=== PATIENT | female | born 1995 | race Caucasian/White ===

== ENCOUNTER 2022-07-11 18:36 | Emergency (ER) | payer OTHER, SELFPAY ==
--- NOTE | ~2022-07-11 | XR_ITS ---
EXAMINATION: XR SHOULDER, RIGHT CLINICAL INFORMATION: Decreased range of motion COMPARISON: None TECHNIQUE: AP external rotation, Grashey, scapular Y, and axillary views of the right shoulder. FINDINGS: The bones and soft tissues are normal. No fracture. Glenohumeral and acromioclavicular alignment is anatomic with normal joint space. No abnormal soft tissue calcifications. XR/XR shoulder RT min 2V IMPRESSION: Normal right shoulder.
--- NOTE | ~2022-07-11 | XR_ITS ---
EXAMINATION: XR CHEST CLINICAL INFORMATION: Shortness of breath COMPARISON: None TECHNIQUE: 2 views of the chest were obtained. FINDINGS: No significant abnormality is noted involving the heart, lungs, mediastinum, bony thorax or soft tissues. XR/XR chest 2V IMPRESSION: Unremarkable examination.
[2022-07-11 19:14] VITALS: BP 140/71; PULSE 64; RESP 16; TEMP 36.2; O2SAT 98; BMI 20.5
--- NOTE | 2022-07-11 19:14 | ED_ITS ---
HPI - Extremity Problem General Chief complaint: Extremity Injury, Upper Stated complaint: shoulder pain Time Seen by Provider: 07/11/22 21:48 Related Data Previous Rx's Medication Instructions Recorded ibuprofen 600 mg tablet 600 mg PO Q6H PRN fever or pain 07/11/22 #30 tabs Allergies Allergy/AdvReac Type Severity Reaction Status Date / Time No Known Allergies Allergy Unverified 05/03/20 16:31 [No Known Allergies*] [facility] Social History Social History Alcohol intake: current Alcohol intake frequency: holidays/special occasions only Smoked in Last 30 Days: Yes Use of substances other than those prescribed or required for medical reasons: Yes Substance Use Type: Marijuana Substance Use Frequency: Occasionally Advance Directives: No Patient : No Physical Exam Vital Signs: Vital Signs: Last Vital Signs Temp 98.9 F 07/11/22 22:00 Pulse 52 07/11/22 22:00 Resp 16 07/11/22 22:00 BP 97/58 L 07/11/22 22:00 Pulse Ox 100 07/11/22 22:00 O2 Del Method 07/11/22 22:00 BMI result Body Mass Index 20.5 Course Course Course Narrative: RME: Patient is a 27-year-old female presents emergency department for evaluation right shoulder pain. 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 Pain is felt diffusely throughout the right shoulder, and across the right anterior chest described as sharp in nature, reports associated shortness of breath/difficulty breathing. Denies any recent URI symptoms. PE: decreased AROM, neurovascularly intact distally. No respiratory distress. Lung sounds clear bilaterally. Plan: Ibuprofen for pain. XR of the right shoulder, low suspicion for pneumothorax however given additional report shortness of breath will obtain chest x-ray as well. Medications Administered Discontinued Medications Generic Name Dose Route Start Last Admin Trade Name Freq PRN Reason Stop Dose Admin Ibuprofen 600 mg 07/11/22 19:20 07/11/22 19:24 Ibuprofen 600 Mg Tablet PO 07/11/22 19:21 600 mg ONCE ONE Administration Discharge Plan Discharge Clinical Impression: Muscle strain of right upper back Patient Disposition: Home, Self-Care Instructions: Muscle Strain (ED) Additional Instructions: Take ibuprofen as prescribed For the PCP for any concerns Prescriptions: New ibuprofen 600 mg tablet 600 mg PO Q6H PRN (Reason: fever or pain) Qty: 30 0RF Interventions: ED Discharge Assessment Last Done: 07/11/22 22:29 Discharge Date/Time: 07/11/22 22:30
[2022-07-11] MEDS: Ibuprofen 600 MG TABLET PO (19:24)
[2022-07-11 21:36] VITALS: BP 110/72; PULSE 64; RESP 14; O2SAT 100
[2022-07-11 22:00] VITALS: BP 97/58; PULSE 52; RESP 16; TEMP 37.2; O2SAT 100
--- NOTE | 2022-07-11 22:21 | ED_ITS ---
HPI - Back Pain/Injury General Chief Complaint: Extremity Injury, Upper Stated Complaint: shoulder pain Time Seen by Provider: 07/11/22 21:48 Source: patient Mode of arrival: ambulatory Limitations: no limitations History of Present Illness HPI Narrative: Oblique patient was lifting bags at work noticed pain the upper back rhomboids area on the right side take a deep breath shortness of breath no other injuries Related Data Previous Rx's Medication Instructions Recorded ibuprofen 600 mg tablet 600 mg PO Q6H PRN fever or pain 07/11/22 #30 tabs Allergies Allergy/AdvReac Type Severity Reaction Status Date / Time No Known Allergies Allergy Unverified 05/03/20 16:31 [No Known Allergies*] Review of Systems Review of Systems: Yes all other systems are reviewed and are negative [facility] Social History Social History Alcohol intake: current Alcohol intake frequency: holidays/special occasions only Smoked in Last 30 Days: Yes Use of substances other than those prescribed or required for medical reasons: Yes Substance Use Type: Marijuana Substance Use Frequency: Occasionally Advance Directives: No Patient : No Physical Exam Vital Signs: Vital Signs: Last Vital Signs Temp 98.9 F 07/11/22 22:00 Pulse 52 07/11/22 22:00 Resp 16 07/11/22 22:00 BP 97/58 L 07/11/22 22:00 Pulse Ox 100 07/11/22 22:00 O2 Del Method 07/11/22 22:00 BMI result Body Mass Index 20.5 Appearance: Alert. Oriented X3. No acute distress. ENT: Pharynx normal. Oral Mucosa moist Neck: Normal inspection. Neck supple. CVS: Normal heart rate and rhythm. Pulses normal. Respiratory: No respiratory distress. Equal air entry bilateral, no wheezing/rales/rhonchi Abdomen: Soft and nontender. Bowel sounds are present, Skin: Skin warm and dry. Normal skin color. Normal skin turgor. Extremities: No lower extremity edema. No calf tenderness Neuro: Oriented X 3. No motor deficit. Back/Spine/Pelvis: Back/spine/pelvis image: 1. Tender left rhomboid area increases on pushing movement Medications Administered Discontinued Medications Generic Name Dose Route Start Last Admin Trade Name Freq PRN Reason Stop Dose Admin Ibuprofen 600 mg 07/11/22 19:20 07/11/22 19:24 Ibuprofen 600 Mg Tablet PO 07/11/22 19:21 600 mg ONCE ONE Administration MDM - Back Pain/Injury MDM Narrative Medical decision making narrative: Patient chest x-ray negative clinically muscle strain of the right rhomboids dis charge patient ibuprofen Discharge Plan Discharge Clinical Impression: Muscle strain of right upper back Patient Disposition: Home, Self-Care Instructions: Muscle Strain (ED) Additional Instructions: Take ibuprofen as prescribed For the PCP for any concerns Prescriptions: New ibuprofen 600 mg tablet 600 mg PO Q6H PRN (Reason: fever or pain) Qty: 30 0RF Interventions: ED Discharge Assessment Last Done: 07/11/22 22:29 Discharge Date/Time: 07/11/22 22:30
== END 2022-07-11 22:30 | disposition home or self-care (01) ==
PROVIDERS: Emergency Provider Internal Medicine
DX: S29.012A Strain of muscle and tendon of back wall of thorax, initial encounter (principal); X50.0XXA Overexertion from strenuous movement or load, initial encounter; Y93.89 Activity, other specified; Y92.511 Restaurant or cafe as the place of occurrence of the external cause; Y99.0 Civilian activity done for income or pay
CPT/HCPCS: 71046; 73030; 99283; 99284

== ENCOUNTER 2023-08-14 09:51 | Outpatient (AMB) | payer BC, SELFPAY ==
[2023-08-14 10:41] VITALS: BP 92/60; PULSE 69; O2SAT 98; BMI 22.7
--- NOTE | 2023-08-14 10:41 | A.OFFPC_ITS ---
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 Intake Note: Pt is here today as a New Patient/ PE: Last pap smear one year [facility] at [facility] Is last menstrual period known: Yes Last menstrual period: 07/28/23 Allergies No Known Allergies [No Known Allergies*] Allergy (Unverified 09/09/23 11:42) Medication List - Last Reconciled 08/14/23 by Opal Archer MD No Known Home Meds Tobacco use date assessed: 08/14/23 Dental Screening Dental Screen Date: 08/14/23 Did you have a dental visit in the last 12 months?: Yes Did you have a dental problem in the last 6 months where you did not have access to dental care?: Yes Was dental information given to patient?: Patient has dentist HPI DISABILITY REPRESENTATIVE/ Requesting PE HPI Details 28-year-old lady here today to establish care with new PCP and for her physical exam. States that she is up-to-date with her cervical cancer screening and pelvic exam, done at [facility] a year ago. Has been feeling well, but has at times having problems with keeping her tension at tasks, and occasional difficulty with concentration and has been feeling tired most of the time.. She has seasonal mood swings, able to control it with learned behavioral techniques. Does not want to start any medication at present time. However she does want to be evaluated for possible ADD. [facility] Medical History (Updated 08/14/23 @ 11:35 by Opal Archer MD) Anxiety and depression Difficulty concentrating Fatigue Surgical History (Updated 09/09/23 @ 11:48 by Opal Archer MD) No pertinent past surgical history Family History (Updated 08/14/23 @ 11:25 by Opal Archer MD) Father No problems noted. Mother Mental health disorder Depression Gestational diabetes Social History (Updated 08/14/23 @ 11:31 by Opal Archer MD) Housing: Apartment Alcohol intake: current Alcohol intake frequency: holidays/special occasions only Patient Tobacco Use Status: Former Tobacco user e-Cigarette/Vaping Use: Currently Using Substance Use Type: Marijuana service: No Current occupational status: employed Current occupation: [employer] Current occupational exposures/hazards: No Sexual orientation: Lesbian/Swayer/Homosexual Cognitive needs: No Hearing needs: No Vision needs: Yes Female Reproductive History Menstrual Age of Menarche: 14 Duration of menses: 3-5 days Date of last menstrual period: 07/28/23 control method: none History of STI: No Other: Previously was being seen at [facility], last Pap smear 2021, normal per patient Questionnaire PHQ-9 Over the last 2 weeks, how often have you been bothered by any of the following problems? 1. Little interest or pleasure in doing things: nearly every day 2. Feeling down, depressed, or hopeless: nearly every day 3. Trouble falling or staying asleep, or sleeping too much: nearly every day 4. Feeling tired or having little energy: nearly every day 5. Poor appetite or overeating: more than half the days 6. Feeling bad about yourself - or that you are a failure or have let yourself or your family down: not at all 7. Trouble concentrating on things, such as reading the newspaper or watching television: nearly every day 8. Moving or speaking so slowly that other people could have noticed. Or the opposite - being so fidgety or restless that you have been moving around a lot more than usual: several days 9. Thoughts that you would be better off or of hurting yourself in some way: several days Total score: 19 Depression Screening Interpretation: Positive Depression Screening Follow-up: Existing condition, Community Mental Health Worker F/U and Declines treatment Depression Screening Done: Yes 21665 - PHQ-9 Billing: Yes Source: Developed by Drs. Evgeny Hale, Lisseth Jesus, Abner Resendez and colleagues, with an educational braden from [employer]. Thrive Questionnaire Date Thrive assessed: 08/14/23 I am a: Patient What is your living situation today?: I have a steady place to live Within the past 12 months, did the food you bought not last and you didn't have the money to get more?: Never true Within the past 12 months, did you worry whether your food would run out before you got money to buy more?: Never true Do you have trouble paying for medicines?: No Do you have trouble getting transportation to medical appointments?: No Do you have trouble paying your heating and electricity bill?: No Do you have trouble taking care of your child, family member or friend?: No Do you have trouble with day-to-day activities such as bathing, preparing meals, shopping, managing finances, etc.?: No Are you currently unemployed and looking for a job?: No Are you interested in more education?: Yes AUDIT C Alcohol Use Questionnaire (AUDIT-C) 1. How often do you have a drink containing alcohol?: Monthly or less 2. How many drinks containing alcohol do you have on a typical day when you are drinking?: 1 or 2 3. How often do you have six or more drinks on one occasion?: Never Total Score: 1 TERESA-7 AMB Questionnaire TERESA-7 Date TERESA - 7 assessed: 08/14/23 Feeling nervous, anxious, or on edge: 2 = More than half the days Not being able to stop or control worryin = More than half the days Worrying too much about different things: 3 = Nearly every day Trouble relaxin = Nearly every day Being so restless that it is hard to sit still: 3 = Nearly every day Becoming easily annoyed or irritable: 3 = Nearly every day Feeling afraid as if something awful might happen: 0 = Not at all Total TERESA-7 score (0-4 normal; 5-9 mild; 10-14 moderate; 15-21 severe): 16 Source: Developed by Drs. Evgeny Hale, Lisseth Jesus, Abner Resendez and colleagues, with an educational braden from [employer]. TERESA-7 Assessment Billing TERESA-7 Assessment Tool: TERESA-7 Assessment 72690 Review of Systems Const Reports fatigue and Reports lethargy Eyes Details: [employer]fter[employer]- has myopia ENT Reports no additional complaints Card Denies chest pain, Denies rapid heart rate, Denies irregular heart rhythm, Denies lightheadedness and Denies dyspnea Resp Denies cough and Denies dyspnea GI Reports no additional complaints Denies hematuria, Denies difficulty voiding, Reports menorrhagia, Denies dysuria, Denies urinary incontinence, Denies vaginal discharge, Denies vaginal dryness, Denies vaginal odor and Denies vaginal pruritus Musc Reports no additional complaints Skin/Breast Denies breast swelling, Denies breast pain, Denies breast mass, Denies lesions and Denies rash Neuro Reports no additional complaints Psych Reports as per HPI Endo Reports fatigue, Denies polyphagia, Denies polydipsia and Denies polyuria Darrick/Lymph Reports no additional complaints Aller/Immun Reports no additional complaints Physical exam (Primary Care) Vital Signs: Last Vital Signs Pulse 69 08/14/23 10:41 BP 92/60 08/14/23 10:41 Pulse Ox 98 08/14/23 10:41 Oxygen Delivery Method Room Air 08/14/23 10:41 BMI result Body Mass Index 22.7 Tobacco/Smoking Status: Tobacco use Status Tobacco use date assessed 08/14/23 08/14/23 10:44 Patient Tobacco Use Status Former Tobacco user 08/14/23 11:31 e-Cigarette/Vaping Use Currently Using 08/14/23 11:31 PHQ-9: PHQ-9 Score PHQ-9: Total score 19 08/14/23 11:58 Depression Screening Interpretation: Positive Depression Screening Follow-up: Existing condition, Community Mental Health Worker F/U and Declines treatment Thrive Assessment: Date of Thrive Assessment Date Thrive assessed 08/14/23 08/14/23 10:46 Const General: no acute distress and alert Nutritional Appearance: average body habitus Orientation/consciousness: patient oriented x3 HENMT Head: Yes normocephalic and Yes atraumatic Ears: external ears normal, TM's normal bilaterally and EAC's normal General nose exam: Normal external nose present and No nasal discharge present Face and sinus: Yes face symmetric Mouth: Normal oral and palatal mucosa present, lip normal, tongue normal, oropharynx normal and moist mucous membranes Eyes General: appearance normal, both eyes and all related structures Eyelids: Yes eyelids normal Conjunctivae: conjunctivae normal Sclerae: sclerae normal Pupils: Equal, round and reactive pupils present EOM: EOMs intact bilaterally Neck Neck: Yes full ROM, Yes no lymphadenopathy and Yes supple Thyroid: Thyroid normal Chest Chest palpation & inspection: normal inspection of the chest Breast/axilla inspection: normal inspection of the breasts Breast/axilla palpation: normal palpation of the breasts Resp Effort & Inspection: normal respiratory effort and able to speak in complete sentences Auscultation: clear to auscultation bilaterally Cardio Rate: regular rate Rhythm: regular rhythm Heart sounds: S1 normal heart sound present and S2 normal heart sound present GI Palpation (GI): Soft to palpation, nontender, no guarding and no masses Auscultation: normal bowel sounds General: Yes no CVA tenderness and Yes deferred (Up-to-date with her cervical cancer screening, done at [facility] in 2021) Back/Spine/Pelvis Back: no CVA tenderness and No back tenderness Skin General skin exam: no rashes or lesions noted Neuro General: patient oriented x3, gait normal, moves all extremities, Normal light touch and pain sensation, no focal motor deficits and CN's II-XI intact bilaterally Cranial nerves: Yes Equal, round and reactive pupils present Cognition (Neuro): normal cognition Gait exam (Neuro): Normal gait present Motor exam (neuro): 5/5 motor strength present throughout Extrem General: Yes normal to inspection, Yes full ROM, Yes no joint enlargement, Yes no pedal edema and Yes normal gait Psych Appearance: grossly normal and well kempt Mental Status: mental status grossly normal Speech and movement: Normal speech and movement present Affect: normal affect Attitude: cooperative Thought process: Normal thought process present Thought content: Normal thought content present Office Procedures Flu Questionnaire Does the patient have a severe egg allergy?: No Does the patient have severe life threatening allergies?: No Does the patient have a fever or illness today?: No Has the patient ever had Guillain-Mico Syndrome?: No Has the patient ever had any past reaction to a flu shot?: No Immunizations flu vacc [id number] 6mos up(PF) 60 mcg(15 mcgx4)/0.5 mL IM syringe Performing Provider: Opal Archer MD [place] [facility] [facility] Administered by: Nadia Ferrer CMA on 08/14/23 11:58 Dose Route Admin Location Dispensed Lot Number Expiration Date NDC Registered Nursing Professor 0.5 mL IM Left Deltoid 0.5 mL [id number] 02/14/24 25943-732-99 [employer] VIS Given Date VIS Provided VIS Publication Date 08/14/23 Single Vaccine 21 Eligibility Eligibility Date Funding Source Not [facility] Eligible 08/14/23 Private Assessment and Plan Assessment & Plan (1) Adult general medical exam: Code(s): Z00.00 - Encounter for general adult medical examination without abnormal findings Plan: Will check appropriate labs. Continue red dental visit every 6 months and regular eye exams, at least every 2 years goes to [facility]. Take adequate calcium in diet and vitamin-D 3 at 2000 IU per cap once a day, in addition to weight-bearing exercises to help maintain good muscle tone and weight control. Instructed to do self-breast exam, and stop to get yearly mammogramat age 42. Advised to get her COVID booster, flu vaccine given today, will request copy of medical records and vaccination records from Dr. [facility] (2) Fatigue: Code(s): R53.83 - Other fatigue Qualifiers: Fatigue type: chronic, unspecified Qualified Code(s): R53.82 - Chronic fatigue, unspecified Plan: Labs ordered to check CBC, TSH with free T4, vitamin-D level vitamin B12 level, basic metabolic panel (3) Difficulty concentrating: Code(s): R41.840 - Attention and concentration deficit Plan: Referred to JEREMY Cheung, for referral for evaluation of ADD inattentive type (4) Anxiety and depression: Code(s): F41.9 - Anxiety disorder, unspecified; F32.A - Depression, unspecified Plan: Declines refer for therapy or starting medication at present time, patient states she is able to control her symptoms and thinks that is mostly seasonal Orders: Orders Complete Blood Count Auto Diff 08/14/23 Z00.00 - Encounter for general adult medical examination without abnormal findings, R53.83 - Other fatigue, R41.840 - Attention and concentration deficit Vitamin D 25-OH Total 08/14/23 Z00.00 - Encounter for general adult medical examination without abnormal findings, R53.83 - Other fatigue, R41.840 - Attention and concentration deficit Aspartate Amino Transferase 08/14/23 Z00.00 - Encounter for general adult medical examination without abnormal findings, R53.83 - Other fatigue, R41.840 - Attention and concentration deficit Alanine Aminotransferase 08/14/23 Z00.00 - Encounter for general adult medical examination without abnormal findings, R53.83 - Other fatigue, R41.840 - Attention and concentration deficit Basic Metabolic Panel Fasting 08/14/23 Z00.00 - Encounter for general adult medical examination without abnormal findings, R53.83 - Other fatigue, R41.840 - Attention and concentration deficit Lipid Panel 08/14/23 Z00.00 - Encounter for general adult medical examination without abnormal findings, R53.83 - Other fatigue, R41.840 - Attention and concentration deficit Vitamin B12 and Folate 08/14/23 Z00.00 - Encounter for general adult medical examination without abnormal findings, R53.83 - Other fatigue, R41.840 - Attention and concentration deficit Influenza [id number] Immunization 08/14/23 Z23 - Encounter for immunization Coding Level of Care Code New Pt Prev Care [id number] Diagnoses Adult general medical exam Z00.00 Chronic fatigue R53.82 Fatigue type: chronic, unspecified Difficulty concentrating R41.840 Anxiety and depression F41.9; F32.A Additional Codes TERESA-7 Assessment Billing - TERESA-7 Assessment Tool: TERESA-7 Assessment 71181 ([id number])
== END 2023-08-14 11:59 | disposition home or self-care (01) ==
PROVIDERS: PCP Internal Medicine; Visit Provider Internal Medicine
DX: Z23 Encounter for immunization (principal)
CPT/HCPCS: 90471; 90686; 99385; 99395

== ENCOUNTER 2023-08-14 11:58 | Outpatient (REF) | payer BC, SELFPAY ==
[2023-08-14 13:21] LABS: MANUAL DIFF FLAG NO
[2023-08-14 13:41] LABS: Basophils Absolute Auto 0.1 X10*3/uL (0.0-0.2); Basophils Percent Auto 1.1 % (0-2); Eosinophils Absolute Auto 0.1 X10*3/uL (0.0-0.4); Eosinophils Percent Auto 2.2 % (0-4); Hematocrit 38.6 % (37.0-47.0); Hemoglobin 12.4 g/dl (12.0-16.0); Imm Gran Abs Auto 0.02 X10*3/uL (0.00-0.03); Imm Gran Pct Auto 0.4 % (0.0-0.4); Lymphocytes Absolute Auto 1.6 X10*3/uL (1.2-4.9); Lymphocytes Percent Auto 28.4 % (20-40); Mean Corpuscular HGB Conc 32.1 g/dl (31.0-35.0); Mean Corpuscular Hemoglobin 28.8 pg (27.0-33.0); Mean Corpuscular Volume 89.8 fL (80.0-98.0); Mean Platelet Volume 11.8 fL (9.4-12.3); Monocytes Absolute Auto 0.4 X10*3/uL (0.1-1.2); Monocytes Percent Auto 7.8 % (2-11); Neutrophils Absolute Auto 3.3 x10*3/uL (2.0-8.3); Neutrophils Percent Auto 60.1 % (45-73); Platelet Count 300 X10*3/uL (160-400); Red Cell Distribution Width 13.2 % (11.0-16.0); White Blood Count 5.5 X10*3/uL (4.8-10.8)
[2023-08-14 14:14] LABS: Alanine Aminotransferase 11 U/L (0-31); Anion Gap 11 (12-20); Aspartate Amino Transferase 15 U/L (5-31); Blood Urea Nitrogen 11 mg/dL (9-16); Calcium 9.4 mg/dL (8.4-10.2); Carbon Dioxide 26 mmol/L (22-29); Chloride 104 mmol/L (96-108); Cholesterol 129 mg/dL (<200); Estimated Glomerular Filt Rate > 60; Glucose Fasting 86 mg/dL (60-99); HDL Cholesterol 63 mg/dL (>40); LDL Cholesterol Calculated 60 mg/dL (<100); Potassium 3.7 mmol/L (3.3-5.1); Sodium 137 mmol/L (135-145); Triglycerides 34 mg/dL (<150)
[2023-08-14 14:17] LABS: Vitamin D 25-OH Total 28.9 ng/mL (>30)
[2023-08-14 14:30] LABS: Folate 7.2 ng/mL (> or = 4.0)
[2023-08-14 14:34] LABS: Vitamin B12 469 pg/mL (200-900)
== END 2023-08-14 11:59 | disposition home or self-care (01) ==
LOC: HO.HMGCLDS 11:58
PROVIDERS: PCP Internal Medicine; Visit Provider Internal Medicine
DX: Z00.00 Encounter for general adult medical examination without abnormal findings (principal); R53.83 Other fatigue; R41.840 Attention and concentration deficit
CPT/HCPCS: 36415; 80048; 80061; 82306; 82607; 82746; 84450; 84460; 85025